=== PATIENT | female | born 1960 | race Hispanic/Latino ===

== ENCOUNTER 2018-03-29 21:58 | Emergency (ER) | payer OTHER ==
[2018-03-29] MEDS ORDERED: ACETAMINOPHEN 325 MG TAB ONE (22:39)
[2018-03-29 22:53] LABS: APPEARANCE,URINE Clear (CLEAR); BILIRUBIN,URINE Negative (NEGATIVE); COLOR,URINE Yellow (YELLOW); GLUCOSE, URINE (UA) Negative (NEGATIVE); KETONES,URINE Trace mg/dL (NEGATIVE); LEUKOCYTE ESTERASE ,URINE Small (NEGATIVE); NITRATE,URINE Negative (NEGATIVE); OCCULT BLOOD,URINE Moderate (NEGATIVE); PROTEIN,URINE POS 1+ (NEGATIVE)
[2018-03-29 22:57] LABS: RAPID GROUP A STREP POSITIVE (NEGATIVE)
[2018-03-29] MEDS ORDERED: LIDOCAINE HCL-MPF 1% 2ML VIAL ONE (23:02)
[2018-03-29] MEDS ORDERED: CEFTRIAXONE SODIUM 1 GM ONE (23:02)
[2018-03-29 23:09] LABS: BACTERIA,URINE Few /HPF (None Seen); MUCUS,URINE Many LPF (None Seen); SQUAMOUS EPITHELIAL CELL,UR Moderate /HPF (0-2)
== END 2018-03-29 22:30 | disposition home or self-care (01) ==
LOC: EDH 21:58
DX: J02.0 Streptococcal pharyngitis (principal); N30.00 Acute cystitis without hematuria; E78.5 Hyperlipidemia, unspecified; E07.9 Disorder of thyroid, unspecified
CPT/HCPCS: 81001; 87088; 87804 ×2; 87880; 96372; 99284; J0696; J3490